=== PATIENT | female | born 1990 | race Caucasian/White ===

== ENCOUNTER 2017-01-16 02:55 | Emergency (ER) | payer OTHER ==
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
== END 2017-01-16 03:40 | disposition home or self-care (01) ==
LOC: ER 02:55
DX: S40.012A Contusion of left shoulder, initial encounter (principal); F10.129 Alcohol abuse with intoxication, unspecified; Z88.5 Allergy status to narcotic agent; V43.52XA Car driver injured in collision with other type car in traffic accident, initial encounter